=== PATIENT | female | born 1940 | race Caucasian/White ===

== ENCOUNTER → 2021-06-29 | Outpatient (CLI) | payer OTHER ==
[~2021-06-29] MED LIST: 24HR ALLERGY REL5 MG PO; AMLODIPINE-BEN1 EAC3 PO; ASPIRIN 325MG325 MG PO; ASPIRIN EC81 MG PO; COUMADIN5 MG PO; ELIQUIS 5 MG TAB5 MG PO; ENOXAPARIN100 MG/1 M SC; FLONASE 0.05% N16 GM; HYDROCHLOROTHIA25 MG PO; LIPITOR TAB 2020 MG PO; LOVENOX80 MG/0.8 SC; MULTAQ400 MG PO; PROTONIX40 MG PO; SINGULAIR10 MG PO; TIROSINT88 MCG PO; TOBRADEX EYE DRO5 ML EYEBOTH; TOPROL XL25 MG PO
== END ==
LOC: HEART 5 06-06 15:00
DX: I08.3 Combined rheumatic disorders of mitral, aortic and tricuspid valves (principal); R06.02 Shortness of breath; I27.20 Pulmonary hypertension, unspecified
CPT/HCPCS: 93306